=== PATIENT | female | born 1960 | race African-American/Black ===

== ENCOUNTER 2023-01-15 08:18 | Emergency (ER) | payer OTHER ==
[2023-01-15 08:28] VITALS: BP 146/63; PULSE 74; RESP 18; TEMP 98.8; BMI 32.8
[2023-01-15] MEDS ORDERED: HIV POST EXPOSURE PROPHYLAXIS KIT NR ONE (08:54)
[2023-01-15] MEDS ORDERED: HIV POST EXPOSURE PROPHYLAXIS KIT PO ONE (09:08)
[2023-01-15] MEDS ORDERED: ACETAMINOPHEN 500 MG TABLET (FP) ONE (09:19)
[2023-01-15 09:22] LABS: BASO % 1.4 % (0-2.0); EOS % 2.1 % (0-4.5); HEMATOCRIT 33.2 % (32.4-45.2); HEMOGLOBIN 11.3 GM/dL (10.7-15.3); LYMPH % 41.8 % (8-40); MCH 26.2 pg (25.7-33.7); MCHC 33.9 g/dl (32.0-36.0); MEAN CELL VOLUME 77.3 fl (80-96); MEAN PLT VOLUME 9.1 fl (7.5-11.1); NEUT % 46.7 % (42.8-82.8); PLATELET COUNT 272 10^3/uL (134-434); RBC 4.29 M/mm3 (3.60-5.2); RDW 15.3 % (11.6-15.6); WHITE BLOOD COUNT 6.2 K/mm3 (4.0-10.0)
[2023-01-15 09:43] LABS: CALCIUM 9.1 mg/dL (8.5-10.1)
[2023-01-15 09:44] LABS: ALBUMIN 3.7 g/dl (3.4-5.0); BLOOD UREA NITROGEN 17.6 mg/dL (7-18)
[2023-01-15 09:47] LABS: CREATININE 0.6 mg/dL (0.55-1.3); PHOSPHOROUS 3.8 mg/dL (2.5-4.9)
[2023-01-15 09:49] LABS: BILIRUBIN,TOTAL 0.2 mg/dL (0.2-1); TOT PROT 7.3 g/dl (6.4-8.2)
[2023-01-16 13:56] LABS: HIV INTERPRETATION NEGATIVE (NEGATIVE)
== END 2023-01-15 10:05 | disposition home or self-care (01) ==
LOC: JERFT 08:18
DX: Z77.21 Contact with and (suspected) exposure to potentially hazardous body fluids (principal)
CPT/HCPCS: 36415; 80053; 84100; 85025; 86704; 86803; 87340; 87389; 87517; 99283-25